=== PATIENT | male | born 1940 | race Caucasian/White ===

== ENCOUNTER 2016-04-27 06:54 | Outpatient (CLI) | payer MEDICARE, OTHER ==
[~2016-04-27] VITALS: Ht 172.7 cm; Wt 88.7 kg
--- NOTE | ~2016-04-27 | HEMODYNAMI ---
PATIENT:BRENTON THOMASON MEDICAL RECORD: [id number] : 40 LOCATION:[facility] ADMISSION DATE: 04/27/16 Generatedon:04/27/20169:41 Patient name: BRENTON THOMASON Patient #: [id number] SSN: [id number] : 1940 Date of study: 04/27/2016 Page: Of Hemodynamic Procedure Report Patient Data Patient Demographics Procedure consent was obtained First Name: BRENTON Gender: Male Last Name: PADDY : 1940 Middle Initial: LEE Age: 75 year(s) Patient #: [id number] Race: SSN: [id number] Additional ID: [id number] Contact details Address: [address] [place] [address] ROAD State: [place] City: [place] Zip code: [address] Admission Admission Data Admission Date: 04/27/2016 Admission Time: 6:54 Arrival Date: 04/27/2016 Arrival Time: 9:30 Admit Source: Other Insurance Payor: Medicare Height (in.): 68 BSA: 2.02 (m2) Height (cm.): 172.72 BMI: 29.65 (kg/m2) Weight (lbs.): 195 Weight (kg.): 88.45 Lab Results Lab Result Date: 04/27/2016 Lab Result Time: 0:00 Biochemistry Name Units Result Min Max BUN mg/dl 18 --(---*)-- 7 18 Creatinine mg/dl 1.2 --(---*)-- 0.6 1.3 CBC Name Units Result Min Max Hemoglobin g/dl 13.2 -*(----)-- 13.5 17.5 Procedure Procedure Types Cath Procedure Diagnostic Procedure FFR/IVUS Intra-Coronary IVUS Initial PCI Procedure Coronary Stent Initial Procedure Description Procedure Date Procedure Date: 04/27/2016 Procedure Start Time: 9:27 Procedure End Time: 9:36 Procedure Staff Name Function Jassi Ace MD Performing Physician Kelsi Weaver Cortes RN Nurse Mg Garrett RT Guide Alpine Gloria Isrrael RT Monitor Indication Angina Procedure Data Cath Procedure Fluoroscopy Diagnostic fluoroscopy Total fluoroscopy Time: 2.4 time: 2.4 min min Diagnostic fluoroscopy Total fluoroscopy dose: dose: 83.54 mGy 83.54 mGy Contrast Material Contrast Material Type Amount (ml) Isovue 370 38 Entry Location Entry Primary Successful Side Size Upsize Upsize Entry Closure Succes sful Closure Location (Fr) 1 (Fr) 2 (Fr) Remarks Device Remarks Femoral Right 6 Fr Exoseal artery Short Estimated blood loss: 5 ml Procedure Complications No complications Procedure Medications Medication Administration Route Dosage Oxygen NC 2 l/min Benadryl I.V. 50 mg Lidocaine 2% added to field 20 Heparin Flush Bag added to field 2 bags (1000units/500ml NS) 0.9% NaCl I.V. 100 ml/hr Versed I.V. 1 mg Fentanyl I.V. 50 mcg Versed I.V. 1 mg Fentanyl I.V. 50 mcg Heparin Bolus I.V. 4000 units Versed I.V. 0.5 mg Fentanyl I.V. 25 mcg Hemodynamics Rest BSA: 2.02 (m2) HGB: 13.2 (g/dl) O2 Consumption: Estimated: 241.34 (ml/min) O2 Co nsumption indexed: Estimated:119.48 (ml/min/m) Heart Rate: 82 (bpm) Snapshots Pre Cath Intra NCS Post Cath Vital Signs Time Heart Resp SPO2 NIBP Rhythm Pain Sedation Rate (ipm) (%) (mmHg) Status Level (bpm) 9:06:19 95 23 97 114/81(92) NSR 0 (11) 10(A) , No pain 9:10:33 76 18 94 107/72(79) NSR 0 (11) 10(A) , No pain 9:14:55 73 17 98 104/58(85) NSR 0 (11) 9(A) , No pain 9:19:11 67 18 97 109/71(83) NSR 0 (11) 9(A) , No pain 9:23:29 77 16 96 107/64(90) NSR 0 (11) 9(A) , No pain 9:27:47 76 18 97 117/71(88) NSR 0 (11) 9(A) , No pain 9:32:07 79 20 97 103/65(79) NSR 0 (11) 9(A) , No pain 9:36:23 80 24 98 111/68(84) NSR 0 (11) 9(A) , No pain 9:39:40 79 20 97 114/71(84) NSR 0 (11) 10(A) , No pain Medications Time Medication Route Dose Verified Delivered Reason Notes Effectiveness by by 9:08:28 Oxygen NC 2 Jassi Buffie used for l/min Malka Cortes RN procedure 9:08:41 Benadryl I.V. 50 mg Jassi Buffie used for Malka Cortes RN procedure 9:08:50 Lidocaine 2% added 20ml Jassi Jassi for local to vial Malka Ace MD anesthetic field 9:08:58 Heparin Flush added 2 Jassi Jassi used for Bag to bags Malka Ace MD procedure (1000units/500ml field NS) 9:09:07 0.9% NaCl I.V. 100 Jassi Buffie Per physician ml/hr Malka Cortes RN 9:11:26 Versed I.V. 1 mg Jassi Buffie for sedation Malka Cortes RN 9:11:34 Fentanyl I.V. 50 Jassi Buffie for sedation mcg Malka Cortes RN 9:14:13 Versed I.V. 1 mg Jassi Buffie for sedation Malka Cortes RN 9:14:17 Fentanyl I.V. 50 Jassi Buffie for sedation mcg Malka Cortes RN 9:27:57 Heparin Bolus I.V. 4000 Jassi Buffie for verifie d units Malka Cortes RN anticoagulation with dr ace 9:30:11 Versed I.V. 0.5 Jassi Buffie for sedation mg Malka Cortes RN 9:30:15 Fentanyl I.V. 25 Jassi Buffie for sedation mcg Malka Cortes RN Procedure Log Time Note 8:40:07 Informed consent obtained and on chart 8:40:18 Diagnostic Cath Status : Elective 8:40:46 Indication : Angina 8:40:53 Admit Source: Other 8:40:58 Arrival Date: 04/27/2016 9:30:00 AM 8:41:10 Insurance Payor : Medicare 8:42:26 Mg Garrett RT(R) sent for patient. Start room use. 8:42:27 Time tracking: Regular hours 8:42:31 Plan of Care:Hemodynamics will remain stable., Cardiac rhythm will remain stable., Comfort level will be maintained., Respiratory function will remain adequate., Patient/ family verbilizes understanding of procedure., Procedure tolerated without complication., Recovers from procedure without complications.. 8:47:39 Patient received from Outpatients to [facility] 2 Alert and oriented. Tansferred to table in Supine position. 8:47:40 Warm blankets applied, and rasheed hugger turned on for patient comfort. 8:47:41 Correct patient and procedure confirmed by team. 8:47:42 ECG and BP/O2 sat monitors applied to patient. 9:04:59 Baseline sample Acquired. 9:04:59 Vital chart was started 9:05:04 Rhythm: sinus rhythm 9:05:06 Full Disclosure recording started 9:05:56 H&P Date Dictated: 04/27/2016 Within 30 days and on chart., H&P Addendum completed by physician on day of procedure. (MUST COMPLETE FOR ALL OUTPATIENTS). 9:05:58 Pre-procedure instructions explained to patient. 9:05:59 Pre-op teaching completed and patient verbalized understanding. 9:06:00 Family in waiting room. 9:06:01 Patient NPO since Midnight. 9:06:10 Is the patient allergic to Iodine/contrast media? No. 9:06:14 Was the patient premedicated? No 9:06:14 Is patient on blood thinner?Yes 9:06:18 ACC The patient was administered the following blood thiners within the last 24 hours: ACCPlavix 9:06:21 Patient diabetic? No. 9:06:24 Previous problem with sedation/anesthesia? No ? 9:06:25 Snore? Yes 9:06:26 Sleep apnea? No 9:06:27 Deviated septum? No 9:06:28 Opens mouth fully? Yes 9:06:29 Sticks out tongue? Yes 9:06:30 Airway obstruction? No ? 9:06:34 Dentures? No ? 9:06:38 Pre procedure: right dorsailis pedis pulse 1+ Palpable, but thready & weak; easily obliterated 9:06:41 Patient pain scale 0/10 ?. 9:06:47 IV patent on arrival in left forearm with 0.9% NaCl at O. 9:06:54 Lab results completed and on chart. ::58 Right groin area was prepped with chlora-prep and draped in sterile fashion 9:07:00 Alarms reviewed by R. N. 9:07:00 Sharps counted by scrub and verified by R.N. 9:08:28 Oxygen 2 l/min NC was given by Owen Cortes RN; used for procedure; 9:08:41 Benadryl 50 mg I.V. was given by Owen Cortes RN; used for procedure; 9::50 Lidocaine 2% 20ml vial added to field was given by Jassi Ace MD; for local anesthetic; ::58 Heparin Flush Bag (1000units/500ml NS) 2 bags added to field was given by Jassi Ace MD; used for procedure; 9::59 Physician arrived 9::59 --------ALL STOP TIME OUT------ 9:09: Final Timeout: patient, procedure, and site verified with staff and physician. All members of the team are in agreement. 9:09:05 Right groin site verified by team. 9:09:07 0.9% NaCl 100 ml/hr I.V. was given by Owen Cortes RN; Per physician; 9:09:08 Physical assessment completed. ASA score P 2 - A patient with mild systemic disease as per Jassi Ace MD. 9:09:12 Sedation plan: IV Moderate Sedation Versed, Fentanyl 9:09:20 Use device set Femoral PCI 9:09:21 Acist Syringe opened to sterile field. 9:09:21 Acist Hand Control opened to sterile field. 9:09:22 Bag Decanter opened to sterile field. 9:09:22 Cardinal Cath Pack opened to sterile field. 9:09:23 Terumo 6Fr [place]terbury Sheath opened to sterile field. 9:09:33 St Bryce 260cm J .035 wire opened to sterile field. 9:09:34 Merit BasixCompak Inflation Kit opened to sterile field. 9:09:34 Acist Manifold opened to sterile field. 9:09:37 Tegaderm 4 x 4 opened to sterile field. :: Lab Result : BUN 18 mg/dl 9::58 Lab Result : Creatinine 1.2 mg/dl : Lab Result : Hemoglobin 13.2 g/dl : Hemodynamic formulas in Rest were re-calculated based on hemoglobin value from 04/27/2016 12:00:00 AM 9::11 Zero performed for pressure channel P1 9:: Versed 1 mg I.V. was given by Owen Cortes RN; for sedation; ::34 Fentanyl 50 mcg I.V. was given by Owen Cortes RN; for sedation; 9::13 Versed 1 mg I.V. was given by Owen Cortes RN; for sedation; 9::17 Fentanyl 50 mcg I.V. was given by Owen Cortes RN; for sedation; ::59 Procedure started. 9:27:02 Local anesthetic to right femoral artery with Lidocaine 2% by Jassi Ace MD.INITIAL ACCESS ONLY 9:27:10 A 6 Fr Short sheath was inserted into the Right Femoral artery 9:27:18 Delvertronic Launcher 6Fr HS II SH guide catheter opened to sterile field. 9:27:28 6 Fr hs 2 sh guide catheter was inserted over the wire 9:27:57 Heparin Bolus 4000 units I.V. was given by Owen Cortes RN; for anticoagulation; verified with dr ace 9:28:09 [place] IVUS Catheter opened to sterile field. 9:28:21 Rawls Whisper J 300cm 0.014 guide wire opened to sterile field. 9:28:28 whisper wire advanced. 9:28:29 Wire advanced across lesion. 9:28:35 IVUS catheter advanced over wire. 9:29:54 IVUS pass to RCA lesion performed. 9::11 Versed 0.5 mg I.V. was given by Owen Cortes RN; for sedation; 9:30:15 Fentanyl 25 mcg I.V. was given by Owen Cortes RN; for sedation; 9:30:46 IVUS catheter removed over wire. 9:32:44 Inflation Number: 1 A Medtronic Resolute 3.0 X 34 stent was prepped and advanced across the Mid RCA. The stent was deployed at 13 LANG for 0:10 (min:sec). 9:33:14 Stent catheter was removed intact over wire. 9:33:21 Wire removed. 9:33:21 Guide catheter removed. 9:33:34 Cordis 6Fr Exoseal opened to sterile field. 9:33:48 Sheath removed intact; hemostasis achieved with Exoseal to the Right Femoral artery. 9:33:50 Procedure ended.(Physican Out) 9:34:25 Fluoroscopy time 02.40 minutes. 9:34:37 Flurop Dose total: 83.54 9:34:37 Fluoroscopy dose: 83.54 mGy 9:35:08 Contrast amount:Isovue 370 38ml. 9:35:10 Sharps counted by scrub and verified by R.N. 9:35:12 Insertion/operative site no bleeding no hematoma. 9:35:15 Post-op/insertion site Right Femoral artery dressed using a 4 x 4 and Tegaderm. 9:35:18 Post right femoral artery:stable 9:35:19 Post Procedure Pulses reassessed and unchanged 9:35:23 Post procedure rhythm: unchanged. 9:35:26 Estimated blood loss: 5 ml 9:35:27 Post procedure instruction explained to patient.Patient verbalizes understanding. 9:35:28 Patient needs reinforcement of post procedure teaching. 9:35:51 Procedure type changed to Cath procedure, Diagnostic procedure, FFR/IVUS, Intra-Coronary IVUS Initial, PCI procedure, Coronary Stent Initial 9:35:54 Procedure and supply charges have been captured, reviewed, submitted and are correct. 9:35:58 Procedure Complication : No complications 9:36:01 Vital chart was stopped 9:36:02 See physician's report for complete and final results. 9:36:27 Report given to [facility]. 9:36:36 Patient transfered to [facility] with Stretcher. 9:36:37 Procedure ended. 9:36:37 Full Disclosure recording stopped 9:36:46 ACC-PCI Only Patient was given prescriptions, or instructed by Jassi Ace MD to start/continue the following medications upon discharge: Plavix 9:36:48 End room use (Document Last) 9:38:06 Patient Height : 172.72 cm 9:38:12 Patient Weight : 88.45 kg Intervention Summary Intervention Notes Time ActionType Lesion and Equipment Action# Pressure Duration Attributes Used 9:32:44 Place stent Mid RCA Medtronic 1 13 00:10 Resolute 3.0 X 34 stent Device Usage Item Name Manufacture Quantity Catalog Hospital Part Current Minimal Lot# / Number Charge Number Stock Stock Serial# Code Acist Acist 1 [id number] [id number] [id number] 144344 20 Syringe Medical Systems Inc Acist Hand Acist 1 97368 544707 818550 029841 5 Control Medical Systems Inc Bag Microtek 1 2002S 338358 66608 872761 5 Decanter Medical Inc. Cardinal Cardinal 1 [id number] 626529 04525 114296 5 Cath Pack Health Terumo 6Fr Terumo 1 [id number] 296882 464163 973574 [address] Bryce 1 [id number] 259138 916783 319580 30 260cm J .035 wire Merit Merit 1 [id number] 368434 827806 627336 15 BasixCompak Medical Inflation Kit Acist Acist 1 76021 373679 804389 463764 5 Manifold Medical Systems Inc Tegaderm 4 3M 1 1626W 607529 620245 831637 5 x 4 Medtronic Medtronic 1 [id number] 102563 29207 386915 1 Launcher 6Fr HS II SH guide catheter [place] 1 [id number] 693217 617997 952992 8 [place] IVUS Catheter Rawls Rawls 1 [id number] 802543 100055 068546 5 Whisper J Vascular 300cm 0.014 guide wire Medtronic Medtronic 1 [id number] 722219 210524 0 [id number] Resolute 3.0 X 34 stent Cordis 6Fr Cardinal 1 [id number] 765664 305005 075964 10 [facility] Signature Audit [place] Stage Time Signature Unsigned Intra-Procedure 04/27/2016 Gloria Arcos 9:40:51 AM RT(R) Signatures Monitor : Gloria Arcos RT Signature : Date : Time : [facility] [address] [place] [address]
--- NOTE | ~2016-04-27 | HEMODYNAMI ---
PATIENT:BRENTON THOMASON MEDICAL RECORD: [id number] : 40 LOCATION[id number] ADMISSION DATE: 04/27/16 Generatedon:04/28/201610:03 Patient name: BRENTNO THOMASON Patient #: [id number] SSN: [id number] : 1940 Date of study: 04/28/2016 Page: Of Hemodynamic Procedure Report Patient Data Patient Demographics Procedure consent was obtained First Name: BRENTON Gender: Male Last Name: PADDY : 1940 [facility] Initial: LEE Age: 75 year(s) Patient #: [id number] Race: SSN: [id number] Additional ID: [id number] Contact details Address: [address] [place] [address] ROAD State: [place] City: [place] Zip code: [address] Admission Admission Data Admission Date: 04/27/2016 Admission Time: 6:54 Arrival Date: 04/27/2016 Arrival Time: 9:30 Admit Source: Other Insurance Payor: Medicare Room #: D.2115 Height (in.): 68 BSA: 2.02 (m2) Height (cm.): 172.72 BMI: 29.65 (kg/m2) Weight (lbs.): 195 Weight (kg.): 88.45 Lab Results Lab Result Date: 04/27/2016 Lab Result Time: 0:00 Biochemistry Name Units Result Min Max BUN mg/dl 18 --(---*)-- 7 18 Creatinine mg/dl 1.2 --(---*)-- 0.6 1.3 CBC Name Units Result Min Max Hemoglobin g/dl 13.2 -*(----)-- 13.5 17.5 Procedure Procedure Types Cath Procedure PCI Procedure Coronary Stent Initial Procedure Description Procedure Date Procedure Date: 04/28/2016 Procedure Start Time: 9:51 Procedure End Time: 10:02 Procedure Staff Name Function Jassi Ace MD Performing Physician Kashif Cueto RT Scrub Aj Henry RN Nurse Mg Garrett RT [employer] Amelia Hernandez RT Monitor Procedure Data Cath Procedure Fluoroscopy Diagnostic fluoroscopy Total fluoroscopy Time: 2.7 time: 2.7 min min Diagnostic fluoroscopy Total fluoroscopy dose: 654 dose: 654 mGy mGy Contrast Material Contrast Material Type Amount (ml) Isovue 300 77 Entry Location Entry Primary Successful Side Size Upsize Upsize Entry Closure Succes sful Closure Location (Fr) 1 (Fr) 2 (Fr) Remarks Device Remarks Femoral Left 6 Fr Vascade artery Short Closure System Estimated blood loss: 10 ml Procedure Complications No complications Procedure Medications Medication Administration Route Dosage Oxygen NC 2 l/min Heparin Flush Bag added to field 2 bags (1000units/500ml NS) 0.9% NaCl I.V. 100 ml/hr Fentanyl I.V. 50 mcg Versed I.V. 1 mg Fentanyl I.V. 50 mcg Versed I.V. 1 mg Heparin Bolus I.V. 4000 units Hemodynamics Rest BSA: 2.02 (m2) HGB: 13.2 (g/dl) O2 Consumption: Estimated: 243.69 (ml/min) O2 Co nsumption indexed: Estimated:120.64 (ml/min/m) Heart Rate: 85 (bpm) Snapshots Pre Cath Intra NCS Post Cath Vital Signs Time Heart Resp SPO2 NIBP (mmHg) Rhythm Pain Sedation Rate (ipm) (%) Status Level (bpm) 9:39:50 77 17 97 135/77(95) NSR 0 (11) 10(A) , No pain 9:43:58 89 16 98 126/85(103) NSR 0 (11) 10(A) , No pain 9:48:14 70 19 95 118/70(102) NSR 0 (11) 9(A) , No pain 9:52:24 76 18 97 117/78(94) NSR 0 (11) 9(A) , No pain 9:56:36 75 18 96 124/70(84) NSR 0 (11) 9(A) , No pain 10:00:48 70 18 95 118/68(89) NSR 0 (11) 9(A) , No pain Medications Time Medication Route Dose Verified Delivered Reason Notes Effectiveness by by 9:44:23 Oxygen NC 2 Aj Rocha Per physician l/min Carl Henry RN RN 9:44:33 Heparin Flush added 2 Aj Aj used for Bag to bags Carl Henry RN procedure (1000units/500ml field RN NS) 9:44:45 0.9% NaCl I.V. 100 Aj Aj Per physician ml/hr Carl Henry RN RN 9:46:40 Fentanyl I.V. 50 Aj Aj for sedation mcg Carl Henry RN RN 9:46:47 Versed I.V. 1 mg Aj Aj for sedation Carl Henry RN RN 9:52:04 Fentanyl I.V. 50 Aj Aj for sedation mcg Carl Henry RN RN 9:52:07 Versed I.V. 1 mg Aj Aj for sedation Carl Henry RN RN 9:53:50 Heparin Bolus I.V. 4000 Aj Aj for units Carl Henry RN anticoagulation crane ladle person Log Time Note 9:15:40 Mg Garrett RT(R) sent for patient. Start room use. 9:32:23 Patient received from PCU to CCL 1 Alert and oriented. Tansferred to table in Supine position. 9:32:41 Time tracking: Regular hours 9:32:45 Plan of Care:Hemodynamics will remain stable., Cardiac rhythm will remain stable., Comfort level will be maintained., Respiratory function will remain adequate., Patient/ family verbilizes understanding of procedure., Procedure tolerated without complication., Recovers from procedure without complications.. 9:38:24 Warm blankets applied, and rasheed hugger turned on for patient comfort. 9:38:25 Correct patient and procedure confirmed by team. 9:38:26 Signed procedure consent form obtained from patient. 9:38:27 ECG and BP/O2 sat monitors applied to patient. 9:38:42 Vital chart was started 9:38:43 Baseline sample Acquired. 9:38:46 Rhythm: sinus rhythm 9:38:48 Full Disclosure recording started 9:41:45 H&P Date Dictated: 04/27/2016 Within 30 days and on chart.. 9:41:46 Pre-procedure instructions explained to patient. 9:41:46 Pre-op teaching completed and patient verbalized understanding. 9:41:47 Family in waiting room. 9:41:49 Patient NPO since Midnight. 9:41:56 Is the patient allergic to Iodine/contrast media? No. 9:41:58 Is patient on blood thinner?Yes 9:42:00 ACC The patient was administered the following blood thiners within the last 24 hours: ACCPlavix 9:42:02 Patient diabetic? No. 9:42:20 Previous problem with sedation/anesthesia? No ? 9:42:20 Snore? Yes 9:42:21 Sleep apnea? No 9:42:22 Deviated septum? No 9:42:23 Opens mouth fully? Yes 9:42:24 Sticks out tongue? Yes 9:42:25 Airway obstruction? No ? 9:42:27 Dentures? No ? 9:42:31 Pre procedure: left dorsailis pedis pulse 2+ Normal; easily identifiable; not easily obliterated 9:42:33 Patient pain scale 0/10 ?. 9:42:38 IV patent on arrival in left hand with 0.9% NaCl at [facility]. 9:42:43 Lab results completed and on chart. 9:42:46 Left groin area was prepped with chlora-prep and draped in sterile fashion 9:42:47 Alarms reviewed by R. N. 9:42:48 Sharps counted by scrub and verified by R.N. 9:42:56 Use device set Femoral PCI 9:42:57 Acist Syringe opened to sterile field. 9:42:58 Acist Hand Control opened to sterile field. 9:42:58 Bag Decanter opened to sterile field. 9:42:59 Cardinal Cath Pack opened to sterile field. 9:42:59 Terumo 6Fr [place] Sheath opened to sterile field. 9:43:00 St Bryce 260cm J .035 wire opened to sterile field. 9:43:00 Merit BasixCompak Inflation Kit opened to sterile field. 9:43:01 Acist Manifold opened to sterile field. 9:43:02 Tegaderm 4 x 4 opened to sterile field. 9:43:35 Rawls Whisper J 300cm 0.014 guide wire opened to sterile field. 9:44:23 Oxygen 2 l/min NC was given by Aj Henry RN; Per physician; 9:44:33 Heparin Flush Bag (1000units/500ml NS) 2 bags added to field was given by Aj Henry RN; used for procedure; 9:44:45 0.9% NaCl 100 ml/hr I.V. was given by Aj Henry RN; Per physician; 9:45:30 Cordis 6FR XB 4.0 guide catheter opened to sterile field. 9:45:41 Final Timeout: patient, procedure, and site verified with staff and physician. All members of the team are in agreement. 9:45:43 Left groin site verified by team. 9:45:45 Physical assessment completed. ASA score P 2 - A patient with mild systemic disease as per Jassi Ace MD. 9:45:47 Sedation plan: IV Moderate Sedation Versed, Fentanyl 9:46:40 Fentanyl 50 mcg I.V. was given by Aj Henry RN; for sedation; 9:46:47 Versed 1 mg I.V. was given by Aj Henry RN; for sedation; 9:48:06 Zero performed for pressure channel P1 9:48:13 Zero performed for pressure channel P1 9:48:16 Zero performed for pressure channel P1 9:51:18 Procedure started. 9:51:24 Local anesthetic to left femerol artery with Lidocaine 2% by Jassi Ace MD.INITIAL ACCESS ONLY 9:52:04 Fentanyl 50 mcg I.V. was given by Aj Henry RN; for sedation; 9:52:07 Versed 1 mg I.V. was given by Aj Henry RN; for sedation; 9:52:07 A 6 Fr Short sheath was inserted into the Left Femoral artery 9:52:40 ACC PCI Site: dCirc has 80% stenosis. 9:52:42 ACC Pre-intervention JOSEF Flow is 3. 9:52:51 6 Fr XB 4.0 guide catheter was inserted over the wire 9:53:50 Heparin Bolus 4000 units I.V. was given by Aj Henry RN; for anticoagulation; 9:54:44 Whisper wire advanced. 9:55:13 Inflation number: 1 A Corona [employer] Richardson 2.0 X 20 balloon was prepped and advanced across the Dist CX, then inflated to 9 LANG for 0:06 (min:sec). 9:55:34 Balloon removed over the wire. 9:57:31 Inflation Number: 2 A LucidMediatronic Resolute 2.25 X 18 Stent was prepped and advanced across the Dist CX. The stent was deployed at 11 LANG for 0:04 (min:sec). 9:58:00 Stent catheter was removed intact over wire. 9:58:02 Wire removed. 9:58:03 Guide catheter removed. 9:58:20 Vascade 6/7 Fr Closure Device opened to sterile field. 9:58:26 Sheath removed intact; hemostasis achieved with Vascade Closure System to the Left Femoral artery. 9:58:28 Procedure ended.(Physican Out) 9:59:04 Fluoroscopy time 02.70 minutes. 9:59:53 Fluoroscopy dose: 654 mGy 9:59:53 Flurop Dose total: 654 9:59:56 Contrast amount:Isovue 300 77ml. 9:59:57 Sharps counted by scrub and verified by R.N. 9:59:58 Insertion/operative site no bleeding no hematoma. 10:00:04 Post-op/insertion site Left Femoral artery dressed using a 4 x 4 and Tegaderm. 10:00:12 Post left femerol artery:stable, clean and dry 10:00:13 Post Procedure Pulses reassessed and unchanged 10:00:18 Post-procedure physical assessment completed. ASA score P 2 - A patient with mild systemic disease as per Jassi Ace MD. 10:00:20 Post procedure rhythm: unchanged. 10:00:22 Estimated blood loss: 10 ml 10:00:24 Post procedure instruction explained to patient.Patient verbalizes understanding. 10:00:25 Patient needs reinforcement of post procedure teaching. 10:00:38 Procedure Complication : No complications 10:00:49 See physician's report for complete and final results. 10:02:34 Procedure and supply charges have been captured, reviewed, submitted and are correct. 10:02:36 Vital chart was stopped 10:02:40 Report given to PCU. 10:02:44 Patient transfered to PCU with Bed. 10:02:53 Procedure ended. 10:02:53 Full Disclosure recording stopped 10:03:02 End room use (Document Last) Intervention Summary Intervention Notes Time ActionType Lesion and Equipment Action# Pressure Duration Attributes Used 9:55:13 Inflate Dist CX Corona 1 9 00:06 balloon Sci Richardson 2.0 X 20 balloon 9:57:31 Place stent Dist CX Medtronic 2 11 00:04 Resolute 2.25 X 18 Stent Device Usage Item Name Manufacture Quantity Catalog Number Hospital Part Current Mini mal Lot# / Charge Number Stock Stock Serial# Code Acist Acist 1 35716 445374 854264 706286 20 Syringe Medical Systems Inc Acist Hand Acist 1 93262 963513 311430 638534 5 Control Medical Systems Inc Bag Microtek 1 2002S 406698 19312 084406 5 Decanter Medical Inc. Cardinal Cardinal [address] 070078 42313 742956 5 Cath Pack Health Terumo 6Fr Terumo 1 [id number] 890458 537608 116896 [address] Bryce 1 923452 489065 761598 585036 30 260cm J .035 wire [facility] 1 [id number] 747075 219799 159778 15 BasixCoSMo Companyk Medical Inflation Kit Acist Acist 1 62223 635964 803511 142932 5 Manifold Medical Systems Inc Tegaderm 4 3M 1 1626W 062776 889151 501897 5 x 4 Rawls Rawls 1 [id number] 632841 763825 424308 5 Whisper J Vascular 300cm 0.014 guide wire Cordis 6FR Cardinal 1 [id number] 403278 415465 382603 2 XB 4.0 Health guide catheter Corona Sci Corona 1 [id number] 824622 116296 525988 1 [id number] Wit studio 2.0 X 20 balloon Medtronic Medtronic 1 [id number] 488820 562597 0 [id number] Resolute 2.25 X 18 Stent Vascade 6/7 Cardiva 1 228-219P-25G 058954 222474 325356 5 Fr Closure Medical, Device Inc. Signature Audit [place]ays Stage Time Signature Unsigned Intra-Procedure 04/28/2016 Amelia 10:03:13 AM Counts RT(R) Signatures Monitor : Amelia Signature : Counts RT Date : Time : [place] [address]
[~2016-04-27 06:54] MED LIST: HYDROCHLOROTHIA25 MG PO; METOPROLOL TART25 MG PO; PLAVIX75 MG PO; PRAVACHOL40 MG PO
[2016-04-27 07:55] LABS: BASOPHILS 0.1 % (0.0-2.0); EOSINOPHILS 2.1 % (0-7); HEMATOCRIT 39.8 % (42.0-54.0); HEMOGLOBIN 13.2 g/dL (13.5-17.5); IMMATURE GRANULOCYTES 0.2 % (0-5); LYMPHOCYTES 22.7 % (15-50); MCH 28.6 pg (26.0-34.0); MCHC 33.2 g/dL (31.0-37.0); MCV 86.3 fL (80.0-100.0); MEAN PLATELET VOLUME 9.8 fL (7.4-10.4); MONOCYTES 10.6 % (2-11); NEUTROPHILS 64.3 % (40-80); PLATELET COUNT 226 10x3/uL (130-400); RBC 4.61 10x6/uL (4.20-6.10); RDW 15.6 % (11.5-14.5); WBC 8.7 10x3/uL (4.8-10.8)
[2016-04-27 08:01] LABS: ANION GAP 12.2 mmol/L (8-16); CALCIUM 9.6 mg/dL (8.5-10.1); CARBON DIOXIDE 29.6 mmol/L (21.0-32.0); CREATININE - SERUM 1.2 mg/dL (0.6-1.3); POTASSIUM - SERUM 4.8 mmol/L (3.5-5.1)
[2016-04-27 08:33] VITALS: BP 129/69; BMI 29.7
--- NOTE | 2016-04-27 10:04 | NUR ---
TRANSFER FROM [employer]. VS WNL. RIGHT GROIN STABLE WITHOUT BLEEDING OR HEMATOMA NOTED. WILL MONITOR.
[2016-04-27 10:05] VITALS: BP 103/62; Ht 172.7 cm; Wt 88.7 kg
[2016-04-27 12:00] VITALS: BP 114/73
--- NOTE | 2016-04-27 14:14 | NUR ---
BED REST UP. GROIN STABLE.
[2016-04-27 15:44] VITALS: BP 155/73
[2016-04-27 20:33] VITALS: BP 125/68
--- NOTE | 2016-04-28 06:09 | NUR ---
PT ASSESSMENT COMPLETED AND NO DISTRESS OBSERVED RIGHT GROIN DRESSING C/D/I WITH NO HEMATOMA OBSERVED OR NOTED NO BLEEDING CONSENTS SISGNED AND TO CHART FOR NURSING TECHNICIAN THIS AM BED LOW AND LOCKED CALL LIGHT IN [facility] SRX2 AT BEDSIDE WILL MONITOR
[2016-04-28 08:00] VITALS: BP 128/61
--- NOTE | 2016-04-28 09:34 | NUR ---
PRE-OPS GIVEN. TO ARRANGING FUNERAL DIRECTOR BY BED.
--- NOTE | 2016-04-28 10:19 | NUR ---
BACK FROM STATE FIRE MARSHAL. VS WNL. LEFT GROI STABLE WITHOUT BLEEDING OR HEMATOMA NOTED. WILL CONT. PLAN OF CARE.
[2016-04-28] MEDS ORDERED: ASPIRIN81 MG PO (11:17)
[2016-04-28 12:00] VITALS: BP 110/67
--- NOTE | 2016-04-28 14:00 | NUR ---
BED REST UP. GROIN STABLE.
--- NOTE | 2016-04-28 14:08 | NUR ---
IV AND TELEMETRY DCD. DC PLANS GIVEN. UNDERSTANDING VOICED. ESCORTED TO CAR BY W/C.
--- NOTE | 2016-04-29 16:23 | HP ---
PATIENT: BRENTON THOMASON MEDICAL RECORD: [id number] ACCOUNT: [id number] LOCATION:[facility] : 40 ADMISSION DATE: 04/27/16 HISTORY AND PHYSICAL EXAMINATION DIAGNOSES 1. Angina. 2. Coronary artery disease. 3. Recent percutaneous transluminal coronary angioplasty, stent to the left anterior descending with concomitant disease right coronary artery and left circumflex. HISTORY OF PRESENT ILLNESS: This is a gentleman, who presents with anginal symptomatology, found to have severe 3-vessel coronary artery disease, underwent successful PTCA stent of the LAD. He is now brought back for PTCA stent of the RCA and left circumflex in a staged fashion. PHYSICAL EXAMINATION: GENERAL APPEARANCE: Well-nourished, well-developed, appears stated age. Level of distress, comfortable. PSYCHIATRIC: Mental status, alert, normal affect. Orientation, oriented to time, place and person. EYES: Lids and conjunctiva, noninjected. No discharge, no pallor. ENT: Lips, teeth, gums, normal dentition. Oropharynx, no cyanosis, no pallor. NECK: Carotid arteries, bilateral normal upstroke, no bruits, no thrills. JUGULAR VEINS: No jugular venous pressure or distention. CERVICAL LYMPH NODES: Nontender, nonenlarged. THYROID: Not enlarged. Nontender. No nodules. LUNGS: Respiratory effort, unlabored. CHEST: Normal curvature. No thoracic deformity. No chest wall tenderness. Percussion, resonant. Auscultation, clear. No wheezes, no rales, no rhonchi. CARDIOVASCULAR: Precordial exam, nondisplaced. No heaves or pericardial thrills. Rate and rhythm, regular. Heart sounds, normal S1, normal S2. No S3, no gallop, no rub. Systolic murmur, not heard. Diastolic murmur, not heard. EXTREMITIES: No cyanosis, no edema. Peripheral pulses, full and equal in all extremities, except as noted. No bruits appreciated. ABDOMEN: Soft, nondistended. Normal aorta. No bruit. Nontender. No masses. Liver, nontender, no hepatomegaly. Spleen, nontender, no splenomegaly. MUSCULOSKELETAL: No joint tenderness. No joint swelling. No erythema. NEUROLOGICAL: Normal gait, normal strength, normal tone. SKIN: Warm and dry. REVIEW OF SYSTEMS: The patient reports easy bruising but reports no swollen glands. The patient reports no fever, no night sweats, no significant weight gain, no significant weight loss. No significant exercise tolerance. The patient reports no dry eyes, no irritation, no vision change. Patient reports no difficulty hearing and no ear pain. Patient reports no frequent nose bleeds or nose and sinus problems. Patient reports on arm pain on exertion. No shortness of breath while lying down. No history of heart murmur. Patient reports no cough, no wheezing or coughing up blood. Patient reports no abdominal pain, no vomiting. Normal appetite. No diarrhea and not vomiting blood. No nausea and no constipation. Patient reports no incontinence. No difficulty urinating. No hematuria. No increased frequency. Patient reports no muscle aches. No weakness, no arthralgias, no back pain. No swelling of the extremities. Patient reports no abnormal mole, no jaundice, no rashes. Reports HISTORY AND PHYSICAL [id number] THOMASON,BRENTON LEE no loss of consciousness. No weakness and no numbness. No seizures, dizziness, or headaches. The patient reports no depression, no sleep disturbance, feeling safe in a relationship and no alcohol abuse. Patient reports on fatigue. Reports no runny nose or sinus pressure. No itching, no hives, and no frequent sneezing. OVERALL IMPRESSION: Anginal symptomatology with significant 3-vessel coronary artery disease. We will proceed with percutaneous transluminal coronary angioplasty stent other remaining vessels in a staged fashion. TRANSINT:[id number] Voice Confirmation ID: [id number] DOCUMENT ID: [id number] HERON HEBERT MD at 1623 CC: [id number] DICTATION DATE: 04/27/16917 GENERATOR SWITCHBOARD OPERATOR: 04/27/16 1001 [facility] CLI 04/28/16 [address] [place] [address]
--- NOTE | 2016-04-29 16:23 | OP ---
PATIENT NAME: BRENTON THOMASON MEDICAL RECORD: [id number] :40 LOCATION:D.CAT ADMISSION DATE: SURGEON: HERON HEBERT MD DATE OF OPERATION: 04/27/2016 PROCEDURES: 1. PTCA stent, RCA. 2. Intravascular ultrasound. 3. Selective coronary angiography. INDICATION: Angina and coronary artery disease. PROCEDURE IN DETAIL: After informed consent was obtained and after detailed explanation of risks, benefits as well as alternative therapies, the patient elected to proceed with angiogram and angioplasty. The right femoral area was prepped and draped in normal sterile fashion. The right femoral artery was cannulated via modified Seldinger technique with placement of 6-Syriac sheath. All catheters exchanged through this sheath. FINDINGS: Intravascular ultrasound revealed that the RCA had 74% stenosis throughout the mid vessel. This was addressed with a 3.0 x 33 mm Resolute stent. Result was 0% residual stenosis. OVERALL IMPRESSION: Successful percutaneous transluminal coronary angioplasty stent of the right coronary artery going from 74% initial stenosis confirmed by intravascular ultrasound to 0% residual. TRANSINT:[id number] Voice Confirmation ID: [id number] DOCUMENT ID: [id number] HERON HEBERT MD at 1623 CC: [id number] DICTATION DATE: 04/27/16 0937 ASSOCIATE PROFESSOR OF MUSICOLOGY: 04/27/[address] [facility] CLI 04/28/[address] [address]
--- NOTE | 2016-04-29 16:23 | OP ---
PATIENT NAME: BRENTON THOMASON MEDICAL RECORD: [id number] :40 LOCATION:D.CAT ADMISSION DATE: SURGEON: HERON HEBERT MD DATE OF OPERATION: 04/28/2016 PROCEDURES: 1. PTCA, stent left circumflex. 2. Selective coronary angiography. INDICATION: Angina and coronary artery disease. PROCEDURE IN DETAIL: After informed consent was obtained and after detailed explanation of risks, benefits, as well as alternative therapies, the patient elected to proceed with angiogram and angioplasty. The left femoral area was prepped and draped in normal sterile fashion. Left femoral artery was cannulated via modified Seldinger technique with placement of 6-Macedonian sheath. All catheters exchanged through this sheath. FINDINGS: The left circumflex has a 90% stenosis in the mid distal vessel. This was addressed with a 2.25 x 18 mm Resolute stent. Result was 0% residual stenosis. OVERALL IMPRESSION: Successful percutaneous transluminal coronary angioplasty stent of the left circumflex going from 90% initial stenosis to 0% residual. TRANSINT:[id number] Voice Confirmation ID: [id number] DOCUMENT ID: [id number] HERON HEBERT MD at 1623 CC: [id number] DICTATION DATE: 04/28/16 1004 BULLDOZER/LOADER/COMPACTOR/SCRAPER: 04/28/16 1115 [facility] CLI 04/28/[address] [address]
--- NOTE | 2016-04-29 16:23 | DS ---
PATIENT:BRENTON CORREIA :40 MEDICAL RECORD: [id number] DISCHARGE SUMMARY ADMISSION DATE: 04/27/16 DISCHARGE DATE: 04/28/16 DISCHARGE DIAGNOSES: 1. Angina. 2. Coronary artery disease. 3. Percutaneous transluminal coronary angioplasty stent left circumflex and right coronary artery this admission. HOSPITAL COURSE: Mr. Correia presented with a non-Q-wave myocardial infarction, unstable angina last week, found to have 3-vessel coronary artery disease, underwent successful PTCA stent of the LAD. He is now brought back for PTCA stent of the left circumflex and RCA these done with an uneventful postop course. No further anginal symptomatology. He was discharged home with no change in his medications as he is already on aspirin and Plavix. We will follow up with [facility] in 1 month. TRANSINT:[id number] Voice Confirmation ID: [id number] DOCUMENT ID: [id number] HERON HEBERT MD at 1623 CC: [id number] DICTATION DATE: 04/28/16 1003 HOME SCHOOL LIAISON OFFICER: 04/28/16 2358 [facility] CLI 04/28/16 [address] [place] [address]
== END 2016-04-28 14:10 | disposition home or self-care (01) ==
LOC: D.M2 06:54 → D.CATH 06:54 → D.M2 09:44 → D.CATH 04-28 14:10
PROVIDERS: Internal Medicine Interventional Cardiology
DX: I25.119 Atherosclerotic heart disease of native coronary artery with unspecified angina pectoris (principal); Z95.5 Presence of coronary angioplasty implant and graft; Z79.82 Long term (current) use of aspirin; Z79.02 Long term (current) use of antithrombotics/antiplatelets
CPT/HCPCS: 92978; C9600 ×2

== ENCOUNTER 2016-11-24 15:14 | Emergency (ER) | payer MEDICARE, OTHER ==
[2016-04-27 10:05] VITALS: BMI 29.7
[~2016-11-24 15:14] MED LIST changes: +ASPIRIN81 MG PO
[2016-11-24 15:57] LABS: BASOPHILS 0.3 % (0-2); EOSINOPHILS 4.2 % (0-7); HEMATOCRIT 36.4 % (42.0-54.0); HEMOGLOBIN 12.2 g/dL (13.5-17.5); IMMATURE GRANULOCYTES 0.1 % (0-5); LYMPHOCYTES 33.5 % (15-50); MCH 28.7 pg (26.0-34.0); MCHC 33.5 g/dL (31.0-37.0); MCV 85.6 fL (80.0-100.0); MEAN PLATELET VOLUME 9.6 fL (7.4-10.4); MONOCYTES 7.9 % (2-11); RBC 4.25 10x6/uL (4.20-6.10); RDW 15.9 % (11.5-14.5); WBC 6.7 10x3/uL (4.8-10.8)
[2016-11-24 16:01] LABS: PLATELET COUNT 167 10x3/uL (130-400)
[2016-11-24 16:13] LABS: ALBUMIN 3.7 g/dL (3.4-5.0); ALKALINE PHOSPHATASE 33 U/L (46-116); ALT (SGPT) 34 U/L (10-68); CALC OSMOLALITY 285 mosm/kg (275-300); CALCIUM 8.9 mg/dL (8.5-10.1); CARBON DIOXIDE 24.8 mmol/L (21.0-32.0); CHLORIDE - SERUM 105 mmol/L (98-107); CREATININE - SERUM 1.3 mg/dL (0.6-1.3); GLUCOSE 123 mg/dL (74-106); POTASSIUM - SERUM 3.5 mmol/L (3.5-5.1); SODIUM 141 mmol/L (136-145); UREA NITROGEN 23 mg/dL (7-18); eGFR NON AFRICAN AMERICAN 57 mL/min (90-120)
[2016-11-24 16:24] LABS: CHOL - HDL RATIO 3.3 ratio (2.3-4.9); CHOLESTEROL, TOTAL 137 mg/dL (0-200); CKMB 2.9 U/L (0.0-3.6); CREATINE KINASE 126 UL (21-232); HDL CHOLESTEROL 41 mg/dL (32-96); LDL CHOLESTEROL 76 mg/dL (0-100); LDL-HDL RATIO 1.9 ratio (1.5-3.5); TRIGLYCERIDE 101 mg/dL (30-200); TROPONIN-I < 0.017 ng/mL (0.000-0.060)
== END 2016-11-24 17:30 | disposition home or self-care (01) ==
LOC: D.ER 15:14
PROVIDERS: Emergency Medicine
DX: R07.89 Other chest pain (principal); I10 Essential (primary) hypertension; F17.200 Nicotine dependence, unspecified, uncomplicated; R00.1 Bradycardia, unspecified